=== PATIENT | male | born 1990 | race Caucasian/White ===

== ENCOUNTER 2019-01-01 20:08 | Emergency (ER) | payer SELFPAY | END 2019-01-01 20:15 | disposition left against medical advice (07) | LOC: E/R 20:08 | DX: Z53.21 Procedure and treatment not carried out due to patient leaving prior to being seen by health care provider (principal) ==

== ENCOUNTER 2019-04-19 10:49 | Emergency (ER) | payer MEDICAID ==
[~2019-04-19] VITALS: Ht 167.6 cm; Wt 72.7 kg
[2019-04-19 10:52] VITALS: Ht 167.6 cm; Wt 72.7 kg
[2019-04-19] MEDS ORDERED: POTASSIUM CHLORIDE (SR) 20 MEQ TAB PO STA (12:07)
--- NOTE | 2019-04-19 12:17 | ERD ---
ER Documentation Chief Complaint Chief Complaint SORE THROAT X 3 DAYS WITH HEMOPTYSIS HPI This is a 28-year-old male who presents to the emergency room from an urgent care for possible evaluation of hemoptysis. However on further investigation the patient describes approximately 1 month of generalized weakness. He has a history of low magnesium and potassium in the past. Patient states that he did not have hemoptysis. He states that he has had nasal congestion and a sore throat. He states that yesterday he noted some blood in the back of his throat. He did not cough. He has no shortness of breath. He has no weight loss, no night sweats and no hemoptysis. He denies any recent travel, incarceration or exposure to tuberculosis. Otherwise the patient has no complaints. During the patient's encounter translation services were utilized Language: Sudanese Source: In person ROS All systems reviewed and are negative except as per history of present illness. PMhx/Soc Medical and Surgical Hx: pt denies Surgical Hx Hx Miscellaneous Medical Probl: Yes (KIDNEY STONE) Hx Alcohol Use: No Hx Substance Use: No Hx Tobacco Use: No Smoking Status: Never smoker Physical Exam Vitals Vital Signs Date Temp Pulse Resp B/P (MAP) Pulse Ox O2 O2 Flow FiO2 Time Delivery Rate 04/19/19 98.4 92 18 127/85 98 10:52 (99) Physical Exam General: Well developed, well nourished, no acute distress Head: Normocephalic, atraumatic. Eyes: Pupils equally reactive, EOM intact ENT: Moist mucous membranes, posterior pharynx without swelling or exudates, uvula midline, no blood Neck: Supple, no lymphadenopathy Respiratory: Lungs clear bilaterally, no distress Cardiovascular: RRR, no murmurs, rubs, or gallops Abdominal: Soft, non-tender, non-distended, no peritoneal signs : Deferred MSK: No edema, no unilateral swelling, 5/5 strength Neurologic: Alert and oriented, moving all extremities, normal speech, no focal weakness, no cerebellar signs Skin: No rash, no petechia or purpura Psych: Normal mood Result Diagram: 04/19/19 1109 04/19/19 1109 Results 24 hrs Laboratory Tests Test 04/19/19 11:09 White Blood Count 9.8 10^3/ul Red Blood Count 5.32 10^6/ul Hemoglobin 16.1 g/dl Hematocrit 44.4 % Mean Corpuscular Volume 83.5 fl Mean Corpuscular Hemoglobin 30.3 pg Mean Corpuscular Hemoglobin Concent 36.3 g/dl Red Cell Distribution Width 12.6 % Platelet Count 287 10^3/UL Mean Platelet Volume 9.2 fl Immature Granulocytes % 0.200 % Neutrophils % 57.9 % Lymphocytes % 32.0 % Monocytes % 8.9 % Eosinophils % 0.7 % Basophils % 0.3 % Nucleated Red Blood Cells % 0.0 /100WBC Immature Granulocytes # 0.020 10^3/ul Neutrophils # 5.6 10^3/ul Lymphocytes # 3.1 10^3/ul Monocytes # 0.9 10^3/ul Eosinophils # 0.1 10^3/ul Basophils # 0.0 10^3/ul Nucleated Red Blood Cells # 0.0 10^3/ul Sodium Level 139 mmol/L Potassium Level 2.7 mmol/L Chloride Level 97 mmol/L Carbon Dioxide Level 31 mmol/L Anion Gap 11 Blood Urea Nitrogen 14 mg/dl Creatinine 0.84 mg/dl Est Glomerular Filtrat Rate mL/min > 60 mL/min Glucose Level 114 mg/dl Calcium Level 9.3 mg/dl Magnesium Level 1.4 mg/dl Monoscreen Negative Current Medications Medications Dose Sig/Jose Start Time Status Last (Trade) Ordered Route PRN Stop Time Admin Dose Reason Admin Potassium 40 meq ONCE STAT 04/19/19 UNV Chloride PO 12:07 (Klor-Con 20) 04/19/19 12:08 Magnesium 64 mg ONCE ONCE 04/19/19 UNV Chloride PO 12:30 (Mag 64) 04/19/19 12:31 Procedures/MDM EKG, MONITORS, & DIAGNOSTIC IMAGING: Chest x-ray: I reviewed and interpreted a 1 view of the chest Mediastinum: No enlargement Cardiac silhouette: No cardiomegaly Airspace: Clear lung harding bilaterally without evidence of pneumothorax Bones: No evidence of fracture LAB INTERPRETATION: I reviewed the laboratory testing and it shows low potassium and magnesium MEDICAL DECISION MAKING: The patient was initially sent to the emergency room for concern for possible tuberculosis. But the patient is not describing hemoptysis. He noted some small blood in the posterior pharynx which is likely consistent with upper respiratory process versus viral pharyngitis. Patient has no night sweats no weight loss and no signs or symptoms concerning for tuberculosis. Given the patient's subacute symptoms I do believe basic blood work would be reasonable but no evidence of systemic illness. ER COURSE: * Patient was given oral replacement of potassium and magnesium. * At this point the patient can be safely discharged with symptom control and primary care follow-up. CONSULTATION: None DISPOSITION PLAN: The patient does not have an identifiable emergent medical condition that warrants inpatient hospitalization at this time. The patient is deemed safe for discharge with outpatient follow-up. We discussed follow up with the patient's primary care doctor within 24 to 48 hours as needed. We also discussed return to the emergency room for worsening symptoms or worsening condition. Outpatient referral: None required Discharge Medications: None required Departure Diagnosis: Primary Impression: Pharyngitis Pharyngitis/tonsillitis etiology: unspecified etiology Qualified Codes: J02.9 - Acute pharyngitis, unspecified Additional Impressions: Hypokalemia Hypomagnesemia Condition: Stable Patient Instructions: Pharyngitis, Viral [facility] Usted se claros hecho un examen mdico de control que le indica que no est en renato condicin que requiera tratamiento urgente en el Departamento de Emergencia. Un estudio ms profundo y el tratamiento de lopez condicin pueden esperar sin ningn riesgo hasta que usted sea atendida/o en el consultorio de lopez mdico o renato clnica. Es responsabilidad suya arreglar renato jesús para el seguimiento del alonso. MANEJO DE CONDICIONES NO URGENTES EN EL FUTURO 1) Si usted tiene un mdico de atencin primaria: Usted debera llamar a lopez mdico de atencin primaria antes de venir al departamento de emergencia. Despus de las horas de consultorio, lopez doctor o lopez asociado/a est disponible por telfono. El mdico o enfermero de [place] en el servicio telefnico puede asesorarle por lio medio para atender el problema, o alonso contrario se puede programar renato jesús. 2) Si usted no tiene un mdico de atencin primaria: Llame al mdico o clnica de referencia que aparece abajo karyn las horas de consultorio para hacer renato jesús para que le vean. CLINICAS: [facility] [phone] [facility] [phone] [facility] [phone] [place] [address] [phone] [place] [address] [phone] [facility]. [phone] [address] [facility] [facility] () Usted se claros hecho un examen mdico de control que le indica que no est en renato condicin que requiera tratamiento urgente en el Departamento de Emergencia. Un estudio ms profundo y el tratamiento de lopez condicin pueden esperar sin ningn riesgo hasta que usted sea atendida/o en el consultorio de lopez mdico o renato clnica. Es responsabilidad suya arreglar renato jesús para el seguimiento del alonso. MANEJO DE CONDICIONES NO URGENTES EN EL FUTURO 1) Si usted tiene un mdico de atencin primaria: Usted debera llamar a lopez mdico de atencin primaria antes de venir al departamento de emergencia. Despus de las horas de consultorio, lopez doctor o lopez asociado/a est disponible por telfono. El mdico o enfermero de [place]er[place] en el servicio telefnico puede asesorarle por lio medio para atender el problema, o alonso contrario se puede programar renato jesús. 2) Si usted no tiene un mdico de atencin primaria: Llame al mdico o condado institucions de referencia que aparece abajo karyn las horas de consultorio para hacer renato jesús para que le vean. SI USTED NO PUEDE PAGAR PARA RAKAN UN MEDICO puede ir a: [facility] [address] [place] [address] [facility] [address] [place] [address] [facility] [address] [place] [address] [facility] [address] [place], [place] [phone] Additional Instructions: Llame al doctor nombrado abajo (Referral Sources) MAANA y shaji renato JESÚS PARA DENTRO DE RENATO SEMANA. Dgale a la secretaria que nosotros le instruimos hacer esta jesús.Avise o llame si lopez condicin se empeora antes de la jesús. ERICKA HALL MD Apr 19, 2019 12:17
[2019-04-19] MEDS ORDERED: MAGNESIUM CHLORIDE (SR) 64 MG TAB PO ONE ×2 (13:00)
[2019-04-19 13:08] VITALS: BP 116/81; PULSE 82; RESP 17
== END 2019-04-19 13:09 | disposition home or self-care (01) ==
LOC: E/R 10:49
DX: J02.9 Acute pharyngitis, unspecified (principal); E87.6 Hypokalemia; E83.42 Hypomagnesemia; R05 Cough
CPT/HCPCS: 36415; 71045; 80048; 83735; 85025; 86308; Z7502; Z7610